=== PATIENT | male | born 1975 | race Caucasian/White ===

== ENCOUNTER 2016-12-18 02:22 | Inpatient (IN) | payer OTHER ==
[~2016-12-18] VITALS: Ht 170.2 cm; Wt 84.8 kg
[2016-12-18] MEDS ORDERED: NS 1,000 ML IV ONE (02:30)
[2016-12-18] MEDS ORDERED: NEXI20CA PO (02:35)
[2016-12-18] MEDS ORDERED: D5W IV ONE ×3 (02:45→09:00)
[2016-12-18] MEDS ORDERED: ONDANSETRON 4MG/2ML VIAL (J2405) IV ONE (02:45)
[2016-12-18] MEDS ORDERED: ACETYLCYSTEINE IV ONE ×3 (02:45→09:00)
[2016-12-18 02:47] LABS: BASO # 0.1 K/mm3 (0.0-0.2); BASO % 0.8 % (0.0-1.0); EOS # 0.2 K/mm3 (0.0-0.50); LARGE UNSTAINED CELL # 0.1 K/mm3 (0.0-0.4); LARGE UNSTAINED CELL % 1.3 % (0.0-4.0); LYMPH # 1.2 K/mm3 (1.5-4.5); LYMPH % 14.9 % (24.0-44.0); MEAN CORPUSCULAR HEMOGLOBIN 30.2 pg (27.0-33.0); MEAN CORPUSCULAR HGB CONC 32.6 g/dl (32.0-36.5); MEAN CORPUSCULAR VOLUME 92.6 fl (80.0-96.0); MONO # 0.2 K/mm3 (0.0-0.8); MONO % 2.1 % (0.0-5.0); NEUTROPHILS # 6.5 K/mm3 (1.8-7.7); NEUTROPHILS % 78.9 % (36.0-66.0); PLATELET COUNT, AUTOMATED 226 k/mm3 (150-450); RED CELL DISTRIBUTION WIDTH 13.3 % (11.5-14.5); WHITE BLOOD COUNT 8.3 K/mm3 (4.0-10.0)
[2016-12-18 03:06] LABS: ABG BASE EXCESS -3.7 (-2.0-2.0); ABG HCO3 19.5 MEQ/L (22.0-26.0); ABG PARTIAL PRESSURE CO2 31.3 mmHg (35.0-45.0); ABG STANDARD HCO3 21.4 MEQ/L (22.0-26.0); ABG TOTAL CO2 20.5 MEQ/L (22.0-29.0); ABG pH (ARTERIAL) 7.413 UNITS (7.350-7.450)
[2016-12-18 03:12] LABS: ALBUMIN 4.2 GM/DL (3.2-5.2); ALBUMIN/GLOBULIN RATIO 1.17 (1.00-1.93); ALKALINE PHOSPHATASE 118 U/L (45-117); ALT/SGPT 645 U/L (12-78); ANION GAP 13 MEQ/L (8-16); AST/SGOT 1496 U/L (15-37); BILIRUBIN,DIRECT 0.6 MG/DL (0.0-0.2); BILIRUBIN,TOTAL 1.2 MG/DL (0.2-1.0); BLOOD UREA NITROGEN 9 MG/DL (7-18); CALCIUM LEVEL 8.8 MG/DL (8.5-10.1); CARBON DIOXIDE LEVEL 21 MEQ/L (21-32); CHLORIDE LEVEL 105 MEQ/L (98-107); GLOMERULAR FILTRATION RATE > 60.0 (>60); GLUCOSE, FASTING 104 MG/DL (70-105); POTASSIUM SERUM 3.7 MEQ/L (3.5-5.1); SODIUM LEVEL 139 MEQ/L (136-145); TOTAL PROTEIN 7.8 GM/DL (6.4-8.2)
[2016-12-18 03:12] LABS: INR 1.48
[2016-12-18] MEDS ORDERED: ONDANSETRON 4MG/2ML VIAL (J2405) IV PRN (04:45)
[2016-12-18 04:53] LABS: METHADONE URINE NEGATIVE (NEGATIVE)
--- NOTE | 2016-12-18 05:12 | HPEPDOC ---
General Date of Admission Dec 18, 2016 at 04:50 Chief Complaint The patient is a 41-year-old male Presented to ED with complaints of nausea and vomiting. History of Present Illness Patient is a 41 year old male with a PMHx of HTN and GERD who presented to the ER with complaints of nausea and vomiting since yesterday. Patient noted that on Sunday he had two teeth extracted. Since that point he has been taking Tylenol because of pain. He took a few pills on then and began to increase his usage on Sunday. Reports he has taken 85 pills of Tylenol 500mg. By Sunday he began to have nausea and vomiting. He reports 15-20x of vomiting without blood or bile. He denies any attempt to harm himself. He does not have any psychiatric history of suicidal ideation. He notes this is the first time he has had an overdose. He does note that he has 2 episodes of diarrhea yesterday (non-bloody). He notes some lower abdominal pain. He denies chest pain, shortness of breath, palpitations, constipation or dysuria. Denies any fevers at home. 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 Review of Symptoms Other systems Constitutional: Denies weight loss, change in appetite, or recent trauma Eyes: No visual changes or eye pain Ears, Nose, Throat: Denies nose bleeds, or difficulty swallowing Cardiovascular: Denies chest pain, sweating, or orthopnea Respiratory: Denies cough, wheezing, or shortness of breath GI: Positive nausea, vomiting, abdominal pain, and diarrhea, No constipation : Denies pain with urination or frequency Musculoskeletal: Denies joint pain or swelling Neuro / Psych: Denies muscle weakness or sensory loss Skin: No skin rashes noted All other review of systems negative; otherwise stated in history of present illness Screening: - Colonoscopy and EGD done a few years ago reported to have diverticulosis Vital Signs - Vitals: BP 162/100, HR 88, RR 18, Sat 97%RA, Temp 100.7F - General: Lying in bed, No acute distress, Speaking in full sentences, AAOx3 - HEENT: NC, AT, PERRLA, EOMI - CVS: RRR, +S1S2, - Murmurs / rubs / gallops - Lungs: Fair air entry bilaterally, Clear to auscultation, No wheezing / rales / rhonchi - Abdomen: Soft, Non-distended, Tenderness at lower quadrants bilaterally, Epigastrium and RUQ, + Bowel sounds x 4 - Extremities: + PPx4, No lower extremity edema, No calf tenderness - Neuro: No focal motor or sensory deficit - Skin: No visible rashes Laboratory Data Labs 24H Laboratory Tests 2 12/18/16 02:31: Acetaminophen Level 5.0L, Aspartate Amino Transf (AST/SGOT) 1496H, Alanine Aminotransferase (ALT/SGPT) 645H, Alkaline Phosphatase 118H, Total Bilirubin 1.2H, Direct Bilirubin 0.6H, Albumin 4.2, Albumin/Globulin Ratio 1.17, Anion Gap 13, White Blood Count 8.3, Red Blood Count 6.03, Hemoglobin 18.2H, Hematocrit 55.8H, Mean Corpuscular Volume 92.6, Mean Corpuscular Hemoglobin 30.2 , Mean Corpuscular Hemoglobin Concent 32.6, Red Cell Distribution Width 13.3, Platelet Count 226, Neutrophils (%) (Auto) 78.9H, Lymphocytes (%) (Auto) 14.9L, Monocytes (%) (Auto) 2.1, Eosinophils (%) (Auto) 2.0, Basophils (%) (Auto) 0.8, Neutrophils # (Auto) 6.5, Lymphocytes # (Auto) 1.2L, Monocytes # (Auto) 0.2, Eosinophils # (Auto) 0.2, Basophils # (Auto) 0.1, Calcium Level 8.8, Ethyl Alcohol Level < 0.003, Glomerular Filtration Rate > 60.0, Large Unclassified Cells # 0.1, Large Unclassified Cells % 1.3, Phosphorus Level 2.8, Salicylates Level < 1.7L, Thyroid Stimulating Hormone (TSH) 1.750, Total Creatine Kinase 112 , Total Protein 7.8 12/18/16 02:36: Activated Partial Thromboplast Time 29.3, Lactic Acid (Sepsis) 2.0, Prothromb Time International Ratio 1.48, Prothrombin Time 18.0H 12/18/16 02:47: Bedside Glucose (Misc Panel) 109H 12/18/16 03:00: Arterial Blood pH 7.413, Arterial Blood Partial Pressure CO2 31.3L, Arterial Blood Partial Pressure O2 78.0, Arterial Blood Total CO2 20.5L, Arterial Blood HCO3 19.5L, Arterial Blood Base Excess -3.7L, Arterial Blood Oxygen Saturation 96.7, Blood Gas Bicarbonate Standard 21.4L 12/18/16 04:23: Urine Amphetamines Screen NEGATIVE, Urine Benzodiazepines Screen NEGATIVE, Urine Opiates Screen NEGATIVE, Urine Barbiturates Screen NEGATIVE, Urine Cannabinoids Screen NEGATIVE, Urine Cocaine Metabolite Screen NEGATIVE, Urine Methadone Screen NEGATIVE, Urine Phencyclidine Screen NEGATIVE CBC/BMP Laboratory Tests 12/18/16 02:31 Red Blood Count 6.03, Mean Corpuscular Volume 92.6, Mean Corpuscular Hemoglobin 30.2, Mean Corpuscular Hemoglobin Concent 32.6, Red Cell Distribution Width 13.3 , Neutrophils (%) (Auto) 78.9 H, Lymphocytes (%) (Auto) 14.9 L, Monocytes (%) ( Auto) 2.1, Eosinophils (%) (Auto) 2.0, Basophils (%) (Auto) 0.8, Neutrophils # ( Auto) 6.5, Lymphocytes # (Auto) 1.2 L, Monocytes # (Auto) 0.2, Eosinophils # ( Auto) 0.2, Basophils # (Auto) 0.1 Plan / VTE VTE Prophylaxis Ordered?: Yes Plan Plan Acetaminophen overdose possibly 2/2 suicidal ideation, possibly 2/2 pain - Reports he has taken 85 pills of Tylenol 500mg - Reports no suicidal ideation, no psychiatric history, no overdose or drug abuse history - Physical reveals abdominal tenderness diffusely - Labs reveal significant elevation in AST and ALT (2-3:1), Elevation in INR, Tylenol level of 5.0 - Does not meet [facility] criteria for liver transplant at this time - Called poison control; advised to give N-acetylcysteine 1 hour, 4 hour and 16 hour bag and to adaquatley hydrate patient - Advised to call poison control back with repeat lab work in 6-12 hours after hydration to determine if additional 16 hour bag is required - Will c/w N-acetylcysteine and IV fluid hydration - Will keep on suicidal precautions and bedside sitter - Will repeat labs at 830AM with ABG Elevated Hg likely 2/2 hemoconcentration 2/2 nausea and vomiting - Will give Zofran for symptomatic relief - c/w IV fluid hydration with NS HTN - will start amolodipine 5mg with holding parameters GERD - will start protonix DVT prophylaxis - Will start SCDs only ROBERTO BEDOLLA MD Dec 18, 2016 05:12
[2016-12-18] MEDS ORDERED: amLODIPine 5 MG TAB PO ONE (05:30)
[2016-12-18 05:55] VITALS: BP 180/94
[2016-12-18] MEDS: NS 1,000 ML IV SCH ×2 (07:30→14:44)
--- NOTE | 2016-12-18 07:35 | REP ---
Clinical: Drug overdose . Comparison: 03/05/2014 . Findings: The mediastinum and cardiac silhouette are stable and within normal limits for portable technique. The lung jackson are clear without acute consolidation, effusion, or pneumothorax. Skeletal structures are intact. Impression: Normal portable chest x-ray Signed by Marco Ocampo MD 12/18/2016 07:27 A
[2016-12-18 07:49] VITALS: BP 174/96
[2016-12-18 08:00] VITALS: BP 174/96
[2016-12-18 08:01] LABS: BASO % 0.5 % (0.0-1.0); EOS # 0.1 K/mm3 (0.0-0.50); EOS % 1.8 % (0.0-3.0); LARGE UNSTAINED CELL # 0.1 K/mm3 (0.0-0.4); LARGE UNSTAINED CELL % 1.8 % (0.0-4.0); LYMPH # 1.5 K/mm3 (1.5-4.5); LYMPH % 17.4 % (24.0-44.0); MEAN CORPUSCULAR HEMOGLOBIN 31.6 pg (27.0-33.0); MEAN CORPUSCULAR HGB CONC 34.1 g/dl (32.0-36.5); MEAN CORPUSCULAR VOLUME 92.5 fl (80.0-96.0); MONO # 0.4 K/mm3 (0.0-0.8); MONO % 4.8 % (0.0-5.0); NEUTROPHILS # 5.8 K/mm3 (1.8-7.7); NEUTROPHILS % 73.6 % (36.0-66.0); PLATELET COUNT, AUTOMATED 184 k/mm3 (150-450); RED CELL DISTRIBUTION WIDTH 13.3 % (11.5-14.5); WHITE BLOOD COUNT 7.9 K/mm3 (4.0-10.0)
[2016-12-18 08:16] LABS: ALBUMIN 3.1 GM/DL (3.2-5.2); ALBUMIN/GLOBULIN RATIO 0.97 (1.00-1.93); ALKALINE PHOSPHATASE 82 U/L (45-117); ALT/SGPT 576 U/L (12-78); ANION GAP 11 MEQ/L (8-16); AST/SGOT 1077 U/L (15-37); BILIRUBIN,TOTAL 0.8 MG/DL (0.2-1.0); BLOOD UREA NITROGEN 8 MG/DL (7-18); CALCIUM LEVEL 7.5 MG/DL (8.5-10.1); CARBON DIOXIDE LEVEL 23 MEQ/L (21-32); CHLORIDE LEVEL 107 MEQ/L (98-107); CREATININE FOR GFR 0.67 MG/DL (0.70-1.30); GLOMERULAR FILTRATION RATE > 60.0 (>60); GLUCOSE, FASTING 118 MG/DL (70-105); POTASSIUM SERUM 3.3 MEQ/L (3.5-5.1); SODIUM LEVEL 141 MEQ/L (136-145); TOTAL PROTEIN 6.3 GM/DL (6.4-8.2)
[2016-12-18 08:47] LABS: ABG BASE EXCESS -1.9 (-2.0-2.0); ABG HCO3 21.4 MEQ/L (22.0-26.0); ABG PARTIAL PRESSURE CO2 33.1 mmHg (35.0-45.0); ABG PARTIAL PRESSURE O2 86.5 mmHg (75.0-100.0); ABG STANDARD HCO3 22.9 MEQ/L (22.0-26.0); ABG TOTAL CO2 22.4 MEQ/L (22.0-29.0); ABG pH (ARTERIAL) 7.429 UNITS (7.350-7.450)
[2016-12-18] MEDS: PANTOPRAZOLE 40MG TAB (PROTONIX) PO SCH (09:12)
[2016-12-18 09:16] LABS: INR 1.53
--- NOTE | 2016-12-18 10:08 | IPN ---
DATE: 12/18/2016 Omar is seen in the emergency room in an interim bed. He is supposed to go to progressive care unit (PCU). He is being admitted with hepatotoxicity secondary to what I think is probably unintentional, though excessive intake of acetaminophen. He is on the hospitalist service. He had dental extraction and was having severe pain. He kept taking more and more Tylenol, supposedly took up to 85 of them, yet he adamantly denies that this was meant to harm himself, he just lost track of his Tylenol intake because of his pain. No history of suicidal ideation or psychiatric illness of any kind. He does not receive any primary care. Apparently has a history of hypertension, gastroesophageal reflux disease (GERD). PHYSICAL EXAMINATION: 174/96, pulse of 85, respiratory rate 20, 96% oxygen saturation. GENERAL APPEARANCE: Resting comfortably. Visiting with family members, no distress. HEENT: Pupils are equal, round and reactive to light. Tympanic membranes clear. Neck with no masses. LUNGS: Clear. HEART: Without murmur. ABDOMEN: Soft, nontender, no masses. No tremor. No asterixis. LABORATORY DATA: This morning his CBC was unremarkable. Chemistry profile showed a potassium down to 3.3. AST down to 1077, ALT down to 576. INR was 1.48 on admission and it is 1.53 on followup. PLAN: Per admission history and physical, N-Acetylcysteine at 1 hour, 4 hour and 16 hours with plans to call Poison Control with the laboratory work at 6 to 12 hours after hydration. I am cancelling the sitter. There is no evidence of suicidal ideation. He will be on telemetry in progressive care unit (PCU). Family is supportive and with him. Hypertension. He is on amlodipine, which was started on admission. ADDENDUM: I have called Poison Control Center at [facility] twice. I also communicated with Omar's intensive care unit (ICU) nurse, Leah. Everyone is in understanding that he needs liver profile and INR drawn 2 hours prior to completion of his current 16 hour bag of N-Acetylcysteine. Should be called to Dr. Mcbride who will be the hospitalist operations and intelligence assistant tonight. Poison Control wants to be called with the results and they will make a decision about further therapy or possible transfer. All parties are aware of this. Edited 12/18/2016 [facility] 1116 MTDD
[2016-12-18 12:00] VITALS: BP 167/91
[2016-12-18 16:00] VITALS: BP 132/76
--- NOTE | 2016-12-18 18:20 | ECGEPIP ---
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
[2016-12-18 20:00] VITALS: BP 149/78
[2016-12-18 23:11] LABS: INR 1.36
[2016-12-18 23:18] LABS: ALBUMIN 2.8 GM/DL (3.2-5.2); ALBUMIN/GLOBULIN RATIO 0.85 (1.00-1.93); BILIRUBIN,DIRECT 0.2 MG/DL (0.0-0.2); BILIRUBIN,TOTAL 0.5 MG/DL (0.2-1.0); TOTAL PROTEIN 6.1 GM/DL (6.4-8.2)
[2016-12-19] VITALS (7 sets, daily range): BP systolic 99–164; BP diastolic 52–99
[2016-12-19] MEDS: NS 1,000 ML IV SCH ×4 (03:02→22:43)
[2016-12-19 05:04] LABS: BASO % 0.7 % (0.0-1.0); EOS # 0.2 K/mm3 (0.0-0.50); EOS % 4.2 % (0.0-3.0); LARGE UNSTAINED CELL # 0.1 K/mm3 (0.0-0.4); LARGE UNSTAINED CELL % 1.8 % (0.0-4.0); LYMPH # 1.8 K/mm3 (1.5-4.5); LYMPH % 29.4 % (24.0-44.0); MEAN CORPUSCULAR HEMOGLOBIN 31.5 pg (27.0-33.0); MEAN CORPUSCULAR HGB CONC 34.2 g/dl (32.0-36.5); MEAN CORPUSCULAR VOLUME 92.3 fl (80.0-96.0); MONO # 0.3 K/mm3 (0.0-0.8); MONO % 5.8 % (0.0-5.0); NEUTROPHILS # 3.4 K/mm3 (1.8-7.7); NEUTROPHILS % 58.2 % (36.0-66.0); PLATELET COUNT, AUTOMATED 164 k/mm3 (150-450); RED CELL DISTRIBUTION WIDTH 13.5 % (11.5-14.5); WHITE BLOOD COUNT 5.9 K/mm3 (4.0-10.0)
[2016-12-19 05:10] LABS: INR 1.31
[2016-12-19 05:28] LABS: ALBUMIN/GLOBULIN RATIO 0.94 (1.00-1.93); ALKALINE PHOSPHATASE 80 U/L (45-117); ALT/SGPT 868 U/L (12-78); ANION GAP 6 MEQ/L (8-16); AST/SGOT 1294 U/L (15-37); BILIRUBIN,TOTAL 0.7 MG/DL (0.2-1.0); BLOOD UREA NITROGEN 4 MG/DL (7-18); CALCIUM LEVEL 7.9 MG/DL (8.5-10.1); CARBON DIOXIDE LEVEL 24 MEQ/L (21-32); CHLORIDE LEVEL 110 MEQ/L (98-107); CREATININE FOR GFR 0.63 MG/DL (0.70-1.30); GLOMERULAR FILTRATION RATE > 60.0 (>60); GLUCOSE, FASTING 96 MG/DL (70-105); POTASSIUM SERUM 3.6 MEQ/L (3.5-5.1); SODIUM LEVEL 140 MEQ/L (136-145); TOTAL PROTEIN 6.2 GM/DL (6.4-8.2)
[2016-12-19] MEDS: PANTOPRAZOLE 40MG TAB (PROTONIX) PO SCH (08:13)
[2016-12-19] MEDS: amLODIPine 5 MG TAB PO SCH (08:13)
[2016-12-19] MEDS ORDERED: ACETYLCYSTEINE 8,500 MG in D5W 1,000 ML IV ONE (10:00)
--- NOTE | 2016-12-19 11:59 | IPN ---
DATE: 12/19/2016 SUBJECTIVE: The patient tells me that he continues to feel weak and tired. He has pain on the right side of his mouth where he had his dental extractions. He otherwise denies any specific complaints. He tells me that his nausea and vomiting is improving. OBJECTIVE: VITAL SIGNS: Maximum temperature (t-max) 102.4, temperature current 102.4, pulse 87, respiratory rate 15, blood pressure 136/80, oxygen saturation 98% on room air. GENERAL: He is a disheveled middle aged man with numerous tattoos. He is resting comfortably and appears in no distress. HEENT: Cranial nerves II through XII are grossly intact. He has tenderness on the right side of his face, but no significant swelling, erythema or discharge. He has moist mucous membranes. No elevation in central venous pressure. CARDIOVASCULAR EXAM: S1, S2 regular. RESPIRATORY EXAM: Clear. ABDOMINAL EXAM: Benign. EXTREMITIES: Numerous tattoos. No clubbing, cyanosis or edema. LABORATORY STUDIES: WBC 5.9, hemoglobin 15, hematocrit 44, platelet count 164. Chemistry panel: Sodium 140, potassium 3.6 and repleted, chloride 110, bicarbonate 24, BUN 4, creatinine 0.6, AST is 1294, up from 1040, ALT 860, up from 681. INR is 1.31, down from 1.36 on the previous draw. Acetaminophen level is negative from this morning. Chest x-ray is unremarkable. ASSESSMENT AND PLAN: This is a 41-year-old man status post acetaminophen overdose. 1. Acetaminophen overdose. Poison Control help was greatly appreciated. It does not appear that it was a suicidal attempt. No history of psychiatric disorder or family history of psychiatric disorder. No overdose intention. The patient was taking it for pain related to a tooth extraction. He does not have a one to one sitter. We are continuing N-acetylcysteine until his AST and ALT are down trending less than 1000. His next set of laboratory studies will be at midnight, 2 hours prior to the completion of N-acetylcysteine if liver functions are not trending down appropriately, INR is not less than 1.5 and acetaminophen level is not undetectable, then therapy should be continued and Poison Control should be contacted once again. 2. Hypertension. The patient is currently receiving Norvasc. 3. Fever. The patient did have an elevated temperature. At this time, we will check blood cultures, UA, urine culture. Chest x-rays are negative. He does not appear to have an infection at his dental site. For the time being, he is not on any antibiotics. This may be related to his overdose. We will continue to follow closely. 4. Deep vein thrombosis (DVT) prophylaxis. Early ambulation.
[2016-12-19] MEDS: CLINDAMYCIN 150 MG CAP PO SCH ×2 (14:12→22:44)
--- NOTE | 2016-12-19 22:01 | ECGEPIP ---
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
[2016-12-20] VITALS (9 sets, daily range): BP systolic 143–159; BP diastolic 86–94
[2016-12-20 01:01] LABS: INR 1.15
[2016-12-20 01:04] LABS: ALKALINE PHOSPHATASE 77 U/L (45-117); ALT/SGPT 914 U/L (12-78); AST/SGOT 890 U/L (15-37); BILIRUBIN,DIRECT 0.3 MG/DL (0.0-0.2); BILIRUBIN,TOTAL 0.7 MG/DL (0.2-1.0)
[2016-12-20] MEDS: CLINDAMYCIN 150 MG CAP PO SCH ×3 (05:25→20:58)
[2016-12-20] MEDS: NS 1,000 ML IV SCH ×3 (05:25→17:59)
[2016-12-20 06:32] LABS: BASO % 0.3 % (0.0-1.0); EOS # 0.2 K/mm3 (0.0-0.50); EOS % 3.3 % (0.0-3.0); LARGE UNSTAINED CELL # 0.2 K/mm3 (0.0-0.4); LARGE UNSTAINED CELL % 2.8 % (0.0-4.0); LYMPH # 1.8 K/mm3 (1.5-4.5); LYMPH % 25.9 % (24.0-44.0); MEAN CORPUSCULAR HGB CONC 32.8 g/dl (32.0-36.5); MEAN CORPUSCULAR VOLUME 94.5 fl (80.0-96.0); MONO # 0.4 K/mm3 (0.0-0.8); MONO % 6.3 % (0.0-5.0); NEUTROPHILS # 3.9 K/mm3 (1.8-7.7); NEUTROPHILS % 61.3 % (36.0-66.0); PLATELET COUNT, AUTOMATED 152 k/mm3 (150-450); RED CELL DISTRIBUTION WIDTH 13.5 % (11.5-14.5); WHITE BLOOD COUNT 6.3 K/mm3 (4.0-10.0)
[2016-12-20 06:33] LABS: INR 1.16
[2016-12-20 06:46] LABS: ALBUMIN 3.1 GM/DL (3.2-5.2); ALBUMIN/GLOBULIN RATIO 0.86 (1.00-1.93); ALKALINE PHOSPHATASE 79 U/L (45-117); ALT/SGPT 951 U/L (12-78); ANION GAP 7 MEQ/L (8-16); AST/SGOT 831 U/L (15-37); BILIRUBIN,TOTAL 0.7 MG/DL (0.2-1.0); BLOOD UREA NITROGEN 5 MG/DL (7-18); CALCIUM LEVEL 8.5 MG/DL (8.5-10.1); CARBON DIOXIDE LEVEL 25 MEQ/L (21-32); CHLORIDE LEVEL 108 MEQ/L (98-107); CREATININE FOR GFR 0.62 MG/DL (0.70-1.30); GLOMERULAR FILTRATION RATE > 60.0 (>60); GLUCOSE, FASTING 82 MG/DL (70-105); MAGNESIUM LEVEL 2.1 MG/DL (1.8-2.4); POTASSIUM SERUM 3.9 MEQ/L (3.5-5.1); SODIUM LEVEL 140 MEQ/L (136-145); TOTAL PROTEIN 6.7 GM/DL (6.4-8.2)
[2016-12-20] MEDS: PANTOPRAZOLE 40MG TAB (PROTONIX) PO SCH (09:12)
[2016-12-20] MEDS: amLODIPine 5 MG TAB PO SCH (09:12)
--- NOTE | 2016-12-20 14:05 | IPN ---
DATE OF EXAMINATION: 12/20/2016 SUBJECTIVE: Today, the patient tells me that he is all around feeling better. He has no further nausea or vomiting. He tells me pain is improving. He tells me that his pain in his teeth is improving, as well. He denies chest pain, shortness of breath, fevers, chills. OBJECTIVE: VITAL SIGNS: Maximum temperature (Tmax) 100.4 at 7:30 a.m., fever appears to be trending down, temperature 98.9, pulse 73, respiratory rate 18, blood pressure 159/91, oxygen saturation 97% on room air. GENERAL: He is a middle-aged man lying in bed. He is sleepy peacefully when I enter the room. When easily aroused, he does not appear to be in any distress. HEENT: Mildly disheveled. Cranial nerves II-XII are grossly intact. He has moist mucous membranes. No elevation in central venous pressure (CVP). No obvious erythema or tenderness or discharge on either of his two dental extraction sites. CARDIOVASCULAR EXAMINATION: S1, S2, regular. RESPIRATORY EXAMINATION: Clear. ABDOMINAL EXAMINATION: Obese. Bowel sounds are present. The abdomen is soft. There is mild tenderness in the right upper quadrant. EXTREMITIES: He has numerous tattoos. No clubbing, cyanosis, or edema. LABORATORY STUDIES: WBC 6.3, hemoglobin 14.7, platelet count 152. Chemistry panel: Sodium 140, potassium 3.9, chloride 108, bicarbonate 25, BUN 5, creatinine 0.6. Liver function tests: AST 831, ALT 951 slightly up from 914. INR is 1.1. Blood cultures are negative after 24 hours. Urine culture is pending. Urinalysis (UA) is essentially unremarkable. No other new imaging. ASSESSMENT AND PLAN: This is a 41-year-old man status post an acetaminophen overdose. PROBLEMS: 1. Acetaminophen overdose. Poison Control's help was greatly appreciated. They have recommended rechecking a liver function test. His ALT was slightly trending up this morning. We will do this. However, at this time, he is off N-acetylcysteine, and likely this syndrome is resolving. His international normalized ratio (INR) is down to 1.1. His acetaminophen level was undetectable on his last check. Will discuss the case once more with Poison Control. I suspect he can likely be discharged within the next 24 hours. 2. Hypertension. The patient is currently on Norvasc. His blood pressure is controlled. 3. Fever, possibly related to his recent tooth extractions. I have started him on clindamycin. His blood cultures have been negative. UA is unremarkable. His chest x-ray is negative, and he does not appear to have any other source of infection. He denies any cough or diarrhea. He should likely complete a 10-day course of antibiotics and have close followup with his dentist. 4. Deep vein thrombosis (DVT) prophylaxis. Early ambulation.
[2016-12-20 14:11] LABS: ALBUMIN 3.2 GM/DL (3.2-5.2); ALBUMIN/GLOBULIN RATIO 1.19 (1.00-1.93); BILIRUBIN,DIRECT 0.3 MG/DL (0.0-0.2); BILIRUBIN,TOTAL 0.5 MG/DL (0.2-1.0); TOTAL PROTEIN 5.9 GM/DL (6.4-8.2)
[2016-12-21] MEDS: NS 1,000 ML IV SCH (00:23)
[2016-12-21 04:45] VITALS: BP 158/89
[2016-12-21 05:30] LABS: BASO % 0.5 % (0.0-1.0); EOS # 0.4 K/mm3 (0.0-0.50); EOS % 6.3 % (0.0-3.0); LARGE UNSTAINED CELL # 0.1 K/mm3 (0.0-0.4); LARGE UNSTAINED CELL % 1.8 % (0.0-4.0); LYMPH # 1.9 K/mm3 (1.5-4.5); LYMPH % 27.2 % (24.0-44.0); MEAN CORPUSCULAR HEMOGLOBIN 31.4 pg (27.0-33.0); MEAN CORPUSCULAR HGB CONC 34.2 g/dl (32.0-36.5); MEAN CORPUSCULAR VOLUME 91.9 fl (80.0-96.0); MONO # 0.3 K/mm3 (0.0-0.8); MONO % 4.5 % (0.0-5.0); NEUTROPHILS % 59.7 % (36.0-66.0); PLATELET COUNT, AUTOMATED 183 k/mm3 (150-450); RED CELL DISTRIBUTION WIDTH 13.6 % (11.5-14.5); WHITE BLOOD COUNT 6.7 K/mm3 (4.0-10.0)
[2016-12-21 05:39] LABS: INR 0.99
[2016-12-21] MEDS: CLINDAMYCIN 150 MG CAP PO SCH (05:47)
[2016-12-21 05:56] LABS: ALBUMIN 3.4 GM/DL (3.2-5.2); ALBUMIN/GLOBULIN RATIO 0.94 (1.00-1.93); ALKALINE PHOSPHATASE 83 U/L (45-117); ALT/SGPT 829 U/L (12-78); ANION GAP 7 MEQ/L (8-16); AST/SGOT 432 U/L (15-37); BILIRUBIN,TOTAL 0.6 MG/DL (0.2-1.0); BLOOD UREA NITROGEN 9 MG/DL (7-18); CALCIUM LEVEL 8.7 MG/DL (8.5-10.1); CARBON DIOXIDE LEVEL 25 MEQ/L (21-32); CHLORIDE LEVEL 107 MEQ/L (98-107); CREATININE FOR GFR 0.61 MG/DL (0.70-1.30); GLOMERULAR FILTRATION RATE > 60.0 (>60); GLUCOSE, FASTING 91 MG/DL (70-105); MAGNESIUM LEVEL 2.1 MG/DL (1.8-2.4); POTASSIUM SERUM 4.1 MEQ/L (3.5-5.1); SODIUM LEVEL 139 MEQ/L (136-145)
[2016-12-21] MEDS ORDERED: PANTOPRAZOLE 40MG TAB (PROTONIX) PO PRN (06:45)
[2016-12-21 07:30] VITALS: BP 158/94
[2016-12-21] MEDS ORDERED: CLEO150C PO (10:47)
--- NOTE | 2016-12-21 17:29 | DSES ---
DATE OF ADMISSION: 12/18/2016 DATE OF LEAVING AGAINST MEDICAL ADVICE: 12/21/2016 LEAVING AGAINST MEDICAL ADVICE DIAGNOSIS: Acute liver failure secondary to acetaminophen overdose. SECONDARY DIAGNOSIS: Fever. HOSPITAL COURSE: The patient is a 41-year-old man who presented on 12/18/2016. He recently had dental extractions of two teeth on the right side of his mouth and reportedly was having significant pain associated with it. He was taking acetaminophen tablets by the handful as he has done throughout his entire life and without reading any bottles with instructions. He was doing this to help alleviate the pain and it was doing so minimally up to the point that he would have nausea, vomiting, and abdominal pain. He presented in acute liver failure with acetaminophen toxicity. He had an initial AST of 1496, ALT 649, INR which peaked at 1.36 at the time of admission, and an acetaminophen level that was 5 at the time of his presentation. Poison Control was notified. He did receive an acetylcysteine antidote. Through the usual protocol it was actually continued as his liver function tests (LFTs) had continued to trend back up. Once the protocol had completed, the patient had persistent fevers. He was started on clindamycin with a suspicion for an infected tooth, however despite appropriate antibiotics he continued to spike fevers. The patient was informed that further testing would be needed and it was ideal that he should be 24 hours fever free prior to any disposition. He was ordered for an echocardiogram. New medications were discontinued to rule out any potential allergic reaction and for drug fever. However the patient, with understanding the risks of continued infection and possible endocarditis and even , elected to leave the hospital AGAINST MEDICAL ADVICE. Throughout his stay he was extremely concerned about his Family and Medical Leave Act (FMLA) paperwork. Prior to his decision to leave AGAINST MEDICAL ADVICE, FMLA paperwork was completed so that the patient could be off work until 12/25/2016, where he could return on light duty until seen by a new primary care provider (PCP) appointment on 12/28/2016. SUBJECTIVE: This morning the patient tells me that he feels great, he has no complaints, and he is not concerned about his fever. He understands the risks and benefits of continued care and declines further care. OBJECTIVE: VITAL SIGNS: Maximum temperature (Tmax) 101.1, current temperature (T-current) 99.7, pulse 84, respiratory rate 20, blood pressure 158/94, oxygen saturation 98 % on room air. GENERAL: He is a disheveled, middle aged man laying in bed. He does not appear to be in any acute distress. HEENT: Cranial nerves II-XII are grossly intact. No obvious swelling or erythema on the right side of his mouth associated with his dental extractions, there is tenderness to palpation. CARDIOVASCULAR: S1, S2. No murmur appreciated. RESPIRATORY EXAM: Clear. ABDOMINAL EXAM: Benign. There is no tenderness. EXTREMITIES: No clubbing, cyanosis, or edema. He has numerous tattoos. LABORATORY STUDIES: WBC 6.7, hemoglobin 15.8, hematocrit 46.2, platelet count 183. Chemistry panel: Sodium 139, potassium 4.1, chloride 107, bicarbonate 25, BUN 9 , creatinine 0.6, AST 432, ALT 829, INR 0.9. Microbiology: Blood cultures are negative after 24 hours. Urine culture is negative. ASSESSMENT AND PLAN: This is a 41-year-old man status post acetaminophen overdose. 1. Acetaminophen overdose with acute liver failure. Poison Control's help was greatly appreciated. At this time his overdose appears to have resolved. His INR is within the normal range. His acetaminophen level is undetectable. His liver function tests are trending down without any further acetylcysteine. He should likely have repeat labs and close followup with a new primary care appointment which was arranged for him on 12/28/2016. 2. Fever, possibly related to his recent tooth extractions. He had been started on clindamycin but despite 2 days of appropriate antibiotic therapy he is still spiking very high temperatures. The etiology is not immediately clear, it could potentially be a drug fever. He was recently started on Protonix while here in the hospital, this has been discontinued, and amlodipine, which has also been discontinued. As he did have a slight rise in eosinophil count, there was a concern that it may have been a drug fever as well. An echocardiogram was ordered to rule out endocarditis, however at this time the patient refuses to stay in hospital for further treatment and antibiotic care and understands the risks of infection and and has elected to leave the hospital AGAINST MEDICAL ADVICE knowing that his stay will likely not be covered by any insurance he may have. Antibiotics for clindamycin have been sent to his pharmacy in order to arrange the safest disposition the patient is willing to allow for. 3. Hypertension. The patient is to followup with his new primary care provider and see if he would benefit from antihypertensive medication. 4. Deep venous thrombosis (DVT) prophylaxis. Ambulation. DISPOSITION: The patient has decided to leave the hospital AGAINST MEDICAL ADVICE. He is to followup with his primary care provider (PCP) as scheduled and followup with dental as soon as possible. Family and Medical Leave Act (FMLA) paperwork was previously filled out for him to be off work until 12/25/2016, and then on light duty from then until 12/28/2016, when he can be seen by a new primary care provider (PCP), this paperwork was filled out prior to him leaving AGAINST MEDICAL ADVICE. At this time I have made it clear to him that I do not think he is safe for discharge home and in that regard certainly do not feel he is safe to return to work immediately. MEDICATIONS: At the time of discharge: - clindamycin 600 mg every 8 hours for 7 days - Nexium 20 mg daily as needed for gastroesophageal reflux disease Greater than 30 minutes spent organizing safest disposition as possible and outlining plan of care and potential risks and benefits and answering all questions to the satisfaction of the patient. OLAMIDE
== END 2016-12-21 11:55 | disposition left against medical advice (07) | DRG 812 ==
LOC: M ED 04:08 → M ED INP 04:50 → M ICU 09:57 → M PCU 12-20 03:10
PROVIDERS: ADMIT Internal Medicine; ATTEND Internal Medicine
DX: T39.1X1A Poisoning by 4-Aminophenol derivatives, accidental (unintentional), initial encounter (principal); K72.00 Acute and subacute hepatic failure without coma; I10 Essential (primary) hypertension; R50.2 Drug induced fever; K21.9 Gastro-esophageal reflux disease without esophagitis; T48.4X5A Adverse effect of expectorants, initial encounter; Z79.899 Other long term (current) drug therapy; Y92.009 Unspecified place in unspecified non-institutional (private) residence as the place of occurrence of the external cause

== ENCOUNTER → 2016-12-21 | Outpatient (REF) | payer OTHER ==
[~2016-12-21] MED LIST: CLEO150C PO; NEXI20CA PO
[2016-12-21 21:09] LABS: MEAN CORPUSCULAR HEMOGLOBIN 31.2 pg (27.0-33.0); MEAN CORPUSCULAR HGB CONC 33.5 g/dl (32.0-36.5); MEAN CORPUSCULAR VOLUME 93.1 fl (80.0-96.0); RED CELL DISTRIBUTION WIDTH 13.6 % (11.5-14.5); WHITE BLOOD COUNT 6.9 K/mm3 (4.0-10.0)
[2016-12-21 21:13] LABS: ALBUMIN 3.8 GM/DL (3.2-5.2); ALBUMIN/GLOBULIN RATIO 1.09 (1.00-1.93); ALKALINE PHOSPHATASE 93 U/L (45-117); ALT/SGPT 784 U/L (12-78); ANION GAP 8 MEQ/L (8-16); AST/SGOT 327 U/L (15-37); BILIRUBIN,TOTAL 0.5 MG/DL (0.2-1.0); BLOOD UREA NITROGEN 10 MG/DL (7-18); CALCIUM LEVEL 8.8 MG/DL (8.5-10.1); CARBON DIOXIDE LEVEL 26 MEQ/L (21-32); CHLORIDE LEVEL 106 MEQ/L (98-107); CREATININE FOR GFR 0.69 MG/DL (0.70-1.30); GLOMERULAR FILTRATION RATE > 60.0 (>60); GLUCOSE, FASTING 94 MG/DL (70-105); POTASSIUM SERUM 4.3 MEQ/L (3.5-5.1); SODIUM LEVEL 140 MEQ/L (136-145); TOTAL PROTEIN 7.3 GM/DL (6.4-8.2)
[2016-12-26 14:14] LABS: ACETAMINOPHEN Negative ug/mL (10-30); AMITRIPTYLINE None Detected (Not Estab.); BUTALBITAL None Detected ug/mL (1-10); DESIPRAMINE None Detected (Not Estab.); DIAZEPAM None Detected ug/mL (0.1-0.9); DOXEPIN None Detected (Not Estab.); ETHANOL Negative % (0.000-0.010); NORCHLORDIAZEPOXIDE None Detected ug/mL (0.1-0.6); NORDIAZEPAM None Detected ug/mL (0.1-1.4); NORDOXEPIN None Detected (Not Estab.); NORTRIPTYLINE None Detected ng/mL (50-150); PENTOBARBITAL None Detected ug/mL (1-5); PHENOBARBITAL None Detected ug/mL (15-40); PHENYTOIN None Detected ug/mL (10.0-20.0)
== END ==
LOC: M SFHCLERA 15:01
PROVIDERS: ATTEND Family Medicine
DX: K72.00 Acute and subacute hepatic failure without coma (principal); T39.1X1D Poisoning by 4-Aminophenol derivatives, accidental (unintentional), subsequent encounter

== ENCOUNTER → 2016-12-25 | Outpatient (REF) | payer OTHER ==
[2016-12-25 17:23] LABS: MEAN CORPUSCULAR HGB CONC 33.3 g/dl (32.0-36.5); MEAN CORPUSCULAR VOLUME 93.1 fl (80.0-96.0); RED CELL DISTRIBUTION WIDTH 13.4 % (11.5-14.5); WHITE BLOOD COUNT 8.5 K/mm3 (4.0-10.0)
[2016-12-25 17:59] LABS: ALBUMIN 3.6 GM/DL (3.2-5.2); ALKALINE PHOSPHATASE 97 U/L (45-117); ALT/SGPT 210 U/L (12-78); ANION GAP 7 MEQ/L (8-16); AST/SGOT 26 U/L (15-37); BILIRUBIN,TOTAL 0.5 MG/DL (0.2-1.0); BLOOD UREA NITROGEN 9 MG/DL (7-18); CALCIUM LEVEL 8.9 MG/DL (8.5-10.1); CARBON DIOXIDE LEVEL 25 MEQ/L (21-32); CHLORIDE LEVEL 107 MEQ/L (98-107); CREATININE FOR GFR 0.73 MG/DL (0.70-1.30); GLOMERULAR FILTRATION RATE > 60.0 (>60); GLUCOSE, FASTING 87 MG/DL (70-105); SODIUM LEVEL 139 MEQ/L (136-145); TOTAL PROTEIN 7.2 GM/DL (6.4-8.2)
[2016-12-25 18:00] LABS: POTASSIUM SERUM 4.3 MEQ/L (3.5-5.1)
== END ==
LOC: M SFHCLERA 11:59
PROVIDERS: ATTEND Family Medicine
DX: K72.00 Acute and subacute hepatic failure without coma (principal)

== ENCOUNTER → 2017-01-01 | Outpatient (REF) | payer OTHER ==
[2017-01-01 20:21] LABS: ALBUMIN 3.8 GM/DL (3.2-5.2); ALBUMIN/GLOBULIN RATIO 1.15 (1.00-1.93); ALKALINE PHOSPHATASE 105 U/L (45-117); ALT/SGPT 48 U/L (12-78); ANION GAP 8 MEQ/L (8-16); AST/SGOT 19 U/L (15-37); BILIRUBIN,TOTAL 0.7 MG/DL (0.2-1.0); BLOOD UREA NITROGEN 9 MG/DL (7-18); CALCIUM LEVEL 9.2 MG/DL (8.5-10.1); CARBON DIOXIDE LEVEL 27 MEQ/L (21-32); CHLORIDE LEVEL 106 MEQ/L (98-107); CREATININE FOR GFR 0.81 MG/DL (0.70-1.30); GLOMERULAR FILTRATION RATE > 60.0 (>60); GLUCOSE, FASTING 173 MG/DL (70-105); SODIUM LEVEL 141 MEQ/L (136-145); TOTAL PROTEIN 7.1 GM/DL (6.4-8.2)
== END ==
LOC: M SFHCLERA 11:35
PROVIDERS: ATTEND Family Medicine
DX: K72.00 Acute and subacute hepatic failure without coma (principal)

== ENCOUNTER 2017-06-27 09:09 | Emergency (ER) | payer OTHER ==
[~2017-06-27] VITALS: Ht 170.2 cm; Wt 88.6 kg
[2017-06-27] MEDS ORDERED: EXCETAB81 PO (09:23)
[2017-06-27] MEDS ORDERED: NS 500 ML IV ONE (09:45)
[2017-06-27 10:07] LABS: BASO # 0.1 10^3/uL (0.0-0.2); BASO % 0.6 % (0.0-1.0); EOS # 0.3 10^3/uL (0.0-0.50); EOS % 4.2 % (0.0-3.0); IMMATURE GRANULOCYTE % 0.4 % (0-0); LYMPH # 2.7 10^3/uL (1.5-4.5); LYMPH % 33.1 % (24.0-44.0); MEAN CORPUSCULAR HEMOGLOBIN 31.5 pg (27.0-33.0); MEAN CORPUSCULAR HGB CONC 34.3 g/dl (32.0-36.5); MEAN CORPUSCULAR VOLUME 91.7 fl (80.0-96.0); MONO # 0.6 10^3/uL (0.0-0.8); NEUTROPHILS # 4.5 10^3/uL (1.8-7.7); NEUTROPHILS % 54.7 % (36.0-66.0); PLATELET COUNT, AUTOMATED 242 10^3/uL (150-450); RED CELL DISTRIBUTION WIDTH 13.9 % (11.5-14.5); WHITE BLOOD COUNT 8.2 10^3/uL (4.0-10.0)
[2017-06-27 10:34] LABS: ALBUMIN 4.1 GM/DL (3.2-5.2); ALKALINE PHOSPHATASE 109 U/L (45-117); ALT/SGPT 24 U/L (12-78); AMYLASE 34 U/L (25-115); ANION GAP 12 MEQ/L (8-16); AST/SGOT 22 U/L (15-37); BILIRUBIN,DIRECT 0.2 MG/DL (0.0-0.2); BILIRUBIN,TOTAL 0.4 MG/DL (0.2-1.0); BLOOD UREA NITROGEN 8 MG/DL (7-18); CALCIUM LEVEL 8.4 MG/DL (8.5-10.1); CARBON DIOXIDE LEVEL 19 MEQ/L (21-32); CHLORIDE LEVEL 105 MEQ/L (98-107); GLOMERULAR FILTRATION RATE > 60.0 (>60); GLUCOSE, FASTING 104 MG/DL (70-105); SODIUM LEVEL 136 MEQ/L (136-145); TOTAL PROTEIN 8.2 GM/DL (6.4-8.2)
--- NOTE | 2017-06-27 11:03 | REP ---
RIGHT UPPER QUADRANT ULTRASOUND: Real-time sonographic evaluation of the right upper quadrant performed. The gallbladder demonstrates no evidence of intraluminal sludge or calculi, wall thickening or pericholecystic fluid. There is no intrahepatic or extrahepatic biliary dilatation, common bile duct measuring 5 mm in diameter. Echotexture of the liver is diffusely heterogeneous. There is a possible mass in the posterior right lobe of the liver measuring 6.5 x 5.3 x 6.4 cm. Pancreas could not be visualized due to overlying bowel gas. Right kidney demonstrates no hydronephrosis or nephrolithiasis with normal size at 11.9 cm in length. IMPRESSION: Heterogeneous echotexture of the liver. Possible mass right lobe liver posteriorly 6.5 cm in maximum diameter. Recommend CT with and without IV contrast to further evaluate. Signed by Roberto Sauceda MD 06/27/2017 05:03 P
[2017-06-27] MEDS ORDERED: ISOVUE-370 76% 100ML VIAL (Q9967) As Ordered ONE (11:16)
--- NOTE | 2017-06-27 12:10 | REP ---
CT ABDOMEN WITH AND WITHOUT CONTRAST: TECHNIQUE: Axial noncontrast images through the abdomen followed by contrast-enhanced images through the abdomen and pelvis using 100 mL Isovue 370 intravenous contrast material, with coronal and sagittal reformations. The visualized lung bases demonstrate two nodules measuring 5 and 6 mm in diameter. Liver demonstrates no mass. Spleen, adrenals, pancreas and kidneys appear unremarkable. There is no adenopathy or free fluid in the abdomen. Mild atherosclerotic calcifications are noted. IMPRESSION: No liver mass. Today's ultrasound finding was artifactual. There are two nodules in the left lung base measuring 5 and 6 mm in diameter. Recommend followup CT of the chest to evaluate for other possible nodules. Signed by Roberto Sauceda MD 06/27/2017 05:05 P
[2017-06-27 12:27] VITALS: BP 184/117
--- NOTE | 2017-06-28 20:35 | ECGEPIP ---
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
--- NOTE | 2017-06-29 07:17 | ED PDOC ---
Post-Departure Follow-Up certified letter sent to pt re formal read of ct abd/p. pt has nodules. needs fu. no pcp listed Binu Yang MD Jun 29, 2017 07:17
== END 2017-06-27 12:29 | disposition home or self-care (01) ==
LOC: M ED 09:09
DX: R10.11 Right upper quadrant pain (principal); R91.8 Other nonspecific abnormal finding of lung field; R93.2 Abnormal findings on diagnostic imaging of liver and biliary tract; F17.200 Nicotine dependence, unspecified, uncomplicated
CPT/HCPCS: 74170; 76705; 80048; 80076; 81001; 82150; 83690; 85025; 86705; 86709; 86803; 87086; 87340; 93005; 99284; G0480; Q9967

== ENCOUNTER 2019-04-02 23:38 | Emergency (ER) | payer OTHER ==
[~2019-04-02] VITALS: Ht 170.2 cm; Wt 104.5 kg
[~2019-04-02 23:38] MED LIST changes: +EXCETAB81 PO
[2019-04-03] MEDS ORDERED: TETRACAINE 0.5% OPHTH SOLN 4ML OS ONE
[2019-04-03] MEDS ORDERED: FLUORESCEIN OPHTH 1 MG STRIP OS ONE
[2019-04-03] MEDS ORDERED: CIPROFLOXACIN 500 MG TAB PO ONE (01:15)
[2019-04-03] MEDS ORDERED: CIPR0.3S OU (02:29)
[2019-04-03] MEDS ORDERED: CIPROFLOXACIN 0.3% OPHTH SOLN 2.5ML OU ONE (02:30)
[2019-04-03 02:36] VITALS: BP 150/86
== END 2019-04-03 02:36 | disposition home or self-care (01) ==
LOC: M ED 23:38
DX: T15.02XA Foreign body in cornea, left eye, initial encounter (principal); W39.XXXA Discharge of firework, initial encounter; Y92.89 Other specified places as the place of occurrence of the external cause; I10 Essential (primary) hypertension

== ENCOUNTER → 2020-03-26 | Outpatient (CLI) | payer OTHER ==
[~2020-03-26] MED LIST changes: +CIPR0.3S OU; +HYDR12.55 PO; +LISI-538 PO
== END ==
LOC: M LABSMTC 12:55
PROVIDERS: ATTEND Family Medicine
DX: Z11.59 Encounter for screening for other viral diseases (principal)
CPT/HCPCS: C9803; U0003

== ENCOUNTER 2020-03-28 12:36 | Emergency (ER) | payer OTHER ==
[~2020-03-28] VITALS: Ht 170.2 cm; Wt 102.0 kg
[~2020-03-28 12:36] MED LIST changes: -HYDR12.55 PO; -LISI-538 PO
[2020-03-28] MEDS ORDERED: NS 1,000 ML IV SCH (13:02)
[2020-03-28] MEDS ORDERED: LABETALOL 100MG/20ML VIAL IV STA ×3 (13:02→14:56)
[2020-03-28] MEDS ORDERED: PANTOPRAZOLE 40MG VIAL (C9113 PER 1) IV ONE (13:15)
[2020-03-28] MEDS ORDERED: KETOROLAC 30 MG/ML 1ML VIAL IV ONE (13:15)
[2020-03-28] MEDS ORDERED: FUROSEMIDE 20MG/2ML VIAL (J1940) IV ONE (13:15)
[2020-03-28] MEDS ORDERED: LABETALOL 100 MG TAB PO ONE (13:15)
[2020-03-28] MEDS ORDERED: ONDANSETRON 4MG/2ML VIAL IV ONE (13:15)
[2020-03-28 13:23] LABS: BASO # 0.1 10^3/uL (0.0-0.2); BASO % 0.7 % (0.0-1.0); EOS # 0.3 10^3/uL (0.0-0.5); EOS % 4.8 % (0.0-3.0); HEMATOCRIT 47.4 % (42.0-52.0); HEMOGLOBIN 15.8 g/dl (13.5-17.5); LYMPH % 28.5 % (24.0-44.0); MEAN CORPUSCULAR HEMOGLOBIN 31.6 pg (27.0-33.0); MEAN CORPUSCULAR HGB CONC 33.3 g/dl (32.0-36.5); MEAN CORPUSCULAR VOLUME 94.8 fl (80.0-96.0); MONO # 0.7 10^3/uL (0.0-0.8); MONO % 10.2 % (0.0-5.0); NEUTROPHILS # 3.9 10^3/uL (1.5-8.5); NEUTROPHILS % 55.4 % (36.0-66.0); PLATELET COUNT, AUTOMATED 222 10^3/uL (150-450); WHITE BLOOD COUNT 7.1 10^3/uL (4.0-10.0)
--- NOTE | 2020-03-28 13:34 | REP ---
Clinical: Acute left flank pain. Technique: Axial noncontrast images from the lung bases to the pubic symphysis with coronal and sagittal re-formations. Comparison: 06/27/2017. Findings: Hepatomegaly and hepatosteatosis noted without focal hepatic lesion identified. Spleen, pancreas, gallbladder, bilateral adrenal glands and kidneys are normal. No perinephric stranding, hydroureteronephrosis, intrarenal or obstructing ureteral calculi identified. Evaluation of the enteric system is without obstruction or acute inflammatory process. Normal terminal ileum and appendix identified in the right lower quadrant. Pelvis demonstrates normal bladder and age appropriate prostate/seminal vesicles. No pelvic fluid or ascites. No free air. No significant adenopathy. Abdominal aorta without aneurysm. Musculoskeletal structures are intact. Lung bases are normal / stable and two noncalcified nodules in the left lower lobe remain unchanged compared to 2017. Impression: 1. Hepatomegaly and hepatosteatosis. 2. No further acute abdominopelvic pathology appreciated. No inflammatory stranding. No significant adenopathy. No free air. No obstruction. Normal appearance to the bowel. Electronically Signed by Marco Ocampo MD 03/28/2020 01:25 P
[2020-03-28 13:36] LABS: INR 1.1; PROTHROMBIN TIME 13.9 SECONDS (11.8-14.0)
[2020-03-28 13:57] LABS: ALBUMIN 3.7 GM/DL (3.2-5.2); ALT/SGPT 34 U/L (12-78); BILIRUBIN,DIRECT 0.1 MG/DL (0.0-0.2); BILIRUBIN,TOTAL 0.4 MG/DL (0.2-1.0); BLOOD UREA NITROGEN 13 MG/DL (7-18); CALCIUM LEVEL 8.9 MG/DL (8.5-10.1); CARBON DIOXIDE LEVEL 23 MEQ/L (21-32); CHLORIDE LEVEL 108 MEQ/L (98-107); CREATININE FOR GFR 0.89 MG/DL (0.70-1.30); GLOMERULAR FILTRATION RATE > 60.0 (>60); GLUCOSE, FASTING 90 MG/DL (70-100); LIPASE 107 U/L (73-393); POTASSIUM SERUM 4.1 MEQ/L (3.5-5.1); SODIUM LEVEL 140 MEQ/L (136-145); TOTAL PROTEIN 7.9 GM/DL (6.4-8.2)
[2020-03-28] MEDS ORDERED: HYDR12.55 PO (15:39)
[2020-03-28] MEDS ORDERED: LISI-538 PO (15:39)
[2020-03-28 15:44] VITALS: BP 224/114
[2020-03-28 16:00] VITALS: BP 178/92
== END 2020-03-28 16:31 | disposition home or self-care (01) ==
LOC: M ED 12:36
DX: L25.9 Unspecified contact dermatitis, unspecified cause (principal); I10 Essential (primary) hypertension; R10.12 Left upper quadrant pain; R10.32 Left lower quadrant pain; K21.9 Gastro-esophageal reflux disease without esophagitis; Z79.899 Other long term (current) drug therapy; F17.210 Nicotine dependence, cigarettes, uncomplicated
CPT/HCPCS: 36415; 74176; 80048; 80076; 81001; 83690; 85025; 85610; 96374; 96375; 96376; 99284; C9113; J1885; J1940; J2405

== ENCOUNTER 2021-11-29 10:36 | Emergency (ER) | payer OTHER ==
[~2021-11-29] VITALS: Ht 170.2 cm; Wt 109.1 kg
[~2021-11-29 10:36] MED LIST changes: -CIPR0.3S OU; +CIPR0.3S6 OU; +HYDR12.55 PO; +LISI20TA33 PO
[2021-11-29] MEDS ORDERED: METF500T13 (10:53)
[2021-11-29] MEDS ORDERED: ATOR40TA75 (10:53)
[2021-11-29] MEDS ORDERED: SPIR-10 (10:53)
[2021-11-29] MEDS ORDERED: TIZA2TA (10:53)
[2021-11-29] MEDS ORDERED: CHLO125TA (10:53)
[2021-11-29 11:37] LABS: BASO # 0.1 10^3/uL (0.0-0.2); BASO % 0.7 % (0.0-1.0); EOS # 0.7 10^3/uL (0.0-0.5); EOS % 6.8 % (0.0-3.0); HEMATOCRIT 41.9 % (42.0-52.0); HEMOGLOBIN 14.2 g/dl (13.5-17.5); LYMPH # 2.1 10^3/uL (1.5-5.0); LYMPH % 19.8 % (24.0-44.0); MEAN CORPUSCULAR HEMOGLOBIN 32.3 pg (27.0-33.0); MEAN CORPUSCULAR HGB CONC 33.9 g/dl (32.0-36.5); MEAN CORPUSCULAR VOLUME 95.4 fl (80.0-96.0); MONO % 9.4 % (2.0-8.0); NEUTROPHILS # 6.6 10^3/uL (1.5-8.5); NEUTROPHILS % 62.8 % (36.0-66.0); PLATELET COUNT, AUTOMATED 275 10^3/uL (150-450); RED BLOOD COUNT 4.39 10^6/uL (4.30-6.10); WHITE BLOOD COUNT 10.5 10^3/uL (4.0-10.0)
[2021-11-29] MEDS ORDERED: NS 1,000 ML IV ONE (12:50)
[2021-11-29 12:51] LABS: ALBUMIN 3.5 GM/DL (3.2-5.2); BILIRUBIN,DIRECT 0.1 MG/DL (0.0-0.2); BILIRUBIN,TOTAL 0.3 MG/DL (0.2-1.0); TOTAL PROTEIN 7.6 GM/DL (6.4-8.2)
[2021-11-29] MEDS ORDERED: ISOVUE-370 76% 100ML VIAL As Ordered ONE (12:57)
[2021-11-29 14:50] VITALS: BP 144/74
== END 2021-11-29 14:51 | disposition home or self-care (01) ==
LOC: M ED 10:36
DX: N17.9 Acute kidney failure, unspecified (principal); E11.9 Type 2 diabetes mellitus without complications; I10 Essential (primary) hypertension; I25.10 Atherosclerotic heart disease of native coronary artery without angina pectoris; K21.9 Gastro-esophageal reflux disease without esophagitis; F17.210 Nicotine dependence, cigarettes, uncomplicated; Z79.899 Other long term (current) drug therapy; Z79.84 Long term (current) use of oral hypoglycemic drugs
CPT/HCPCS: 74177; 80047; 80076; 81001; 83690; 83880; 85025; 96360; 99284; Q9967

== ENCOUNTER → 2021-12-09 | Outpatient (CLI) | payer OTHER ==
[~2021-12-09] MED LIST changes: +ATOR40TA75; +CHLO125TA; +METF500T13; +SPIR-10; +TIZA2TA
[2021-12-09 12:53] LABS: BASO # 0.1 10^3/uL (0.0-0.2); BASO % 0.8 % (0.0-1.0); EOS # 0.8 10^3/uL (0.0-0.5); EOS % 8.8 % (0.0-3.0); HEMATOCRIT 41.6 % (42.0-52.0); HEMOGLOBIN 13.9 g/dl (13.5-17.5); LYMPH # 2.8 10^3/uL (1.5-5.0); LYMPH % 32.5 % (24.0-44.0); MEAN CORPUSCULAR HEMOGLOBIN 31.7 pg (27.0-33.0); MEAN CORPUSCULAR HGB CONC 33.4 g/dl (32.0-36.5); MONO # 0.9 10^3/uL (0.0-0.8); MONO % 10.9 % (2.0-8.0); NEUTROPHILS # 4.1 10^3/uL (1.5-8.5); NEUTROPHILS % 46.8 % (36.0-66.0); PLATELET COUNT, AUTOMATED 269 10^3/uL (150-450); RED BLOOD COUNT 4.38 10^6/uL (4.30-6.10); WHITE BLOOD COUNT 8.7 10^3/uL (4.0-10.0)
[2021-12-09 13:26] LABS: ALBUMIN 4.1 GM/DL (3.2-5.2); ALT/SGPT 35 U/L (12-78); BILIRUBIN,TOTAL 0.4 MG/DL (0.2-1.0); BLOOD UREA NITROGEN 27 MG/DL (7-18); CALCIUM LEVEL 9.3 MG/DL (8.5-10.1); CARBON DIOXIDE LEVEL 24 MEQ/L (21-32); CHLORIDE LEVEL 107 MEQ/L (98-107); CREATININE FOR GFR 1.18 MG/DL (0.70-1.30); GLOMERULAR FILTRATION RATE > 60.0 (>60); GLUCOSE, FASTING 157 MG/DL (70-100); POTASSIUM SERUM 4.6 MEQ/L (3.5-5.1); SODIUM LEVEL 136 MEQ/L (136-145); TOTAL PROTEIN 8.4 GM/DL (6.4-8.2)
== END ==
LOC: M WUC 10:27
PROVIDERS: ATTEND Family Medicine
DX: R10.31 Right lower quadrant pain (principal)

== ENCOUNTER → 2023-01-15 | Outpatient (CLI) | payer OTHER ==
[~2023-01-15] MED LIST changes: +CIPR0.3S37 OU; -CIPR0.3S6 OU
[2023-01-15 12:58] LABS: BASO # 0.1 10^3/uL (0.0-0.2); EOS # 0.4 10^3/uL (0.0-0.5); EOS % 5.6 % (0.0-3.0); HEMATOCRIT 40.6 % (42.0-52.0); HEMOGLOBIN 12.7 g/dl (13.5-17.5); LYMPH # 2.1 10^3/uL (1.5-5.0); LYMPH % 26.6 % (24.0-44.0); MEAN CORPUSCULAR HEMOGLOBIN 30.8 pg (27.0-33.0); MEAN CORPUSCULAR HGB CONC 31.3 g/dl (32.0-36.5); MEAN CORPUSCULAR VOLUME 98.5 fl (80.0-96.0); MONO # 0.9 10^3/uL (0.0-0.8); MONO % 10.7 % (2.0-8.0); NEUTROPHILS # 4.4 10^3/uL (1.5-8.5); NEUTROPHILS % 55.3 % (36.0-66.0); PLATELET COUNT, AUTOMATED 247 10^3/uL (150-450); RED BLOOD COUNT 4.12 10^6/uL (4.30-6.10); WHITE BLOOD COUNT 7.9 10^3/uL (4.0-10.0)
[2023-01-15 13:22] LABS: ALBUMIN 3.9 G/DL (3.2-5.2); ALKALINE PHOSPHATASE 122 U/L (46-116); ALT/SGPT 18 U/L (7.0-40); AST/SGOT 19 U/L (<34); BILIRUBIN,TOTAL 0.2 MG/DL (0.3-1.2); BLOOD UREA NITROGEN 26 MG/DL (9-23); CALCIUM LEVEL 8.6 MG/DL (8.5-10.1); CARBON DIOXIDE LEVEL 24 MMOL/L (20-31); CHLORIDE LEVEL 105 MMOL/L (98-107); CREATININE FOR GFR 1.13 MG/DL (0.70-1.30); GLOMERULAR FILTRATION RATE > 60.0 (>60); GLUCOSE, FASTING 150 MG/DL (60-100); POTASSIUM SERUM 4.5 MMOL/L (3.5-5.1); SODIUM LEVEL 137 MMOL/L (136-145); THYROID STIMULATING HORMONE 2.131 uIU/ML (0.55-4.78); TOTAL PROTEIN 7.5 G/DL (5.7-8.2)
== END ==
LOC: M WUC 10:14
PROVIDERS: ATTEND Family Medicine
DX: R07.9 Chest pain, unspecified (principal)

== ENCOUNTER → 2023-02-06 | Outpatient (CLI) | payer OTHER ==
[2023-02-06 12:54] LABS: BASO # 0.1 10^3/uL (0.0-0.2); BASO % 0.8 % (0.0-1.0); EOS # 0.7 10^3/uL (0.0-0.5); EOS % 6.3 % (0.0-3.0); HEMATOCRIT 38.8 % (42.0-52.0); HEMOGLOBIN 12.7 g/dl (13.5-17.5); LYMPH # 2.1 10^3/uL (1.5-5.0); LYMPH % 18.4 % (24.0-44.0); MEAN CORPUSCULAR HEMOGLOBIN 31.2 pg (27.0-33.0); MEAN CORPUSCULAR HGB CONC 32.7 g/dl (32.0-36.5); MEAN CORPUSCULAR VOLUME 95.3 fl (80.0-96.0); MONO # 0.9 10^3/uL (0.0-0.8); MONO % 8.3 % (2.0-8.0); NEUTROPHILS # 7.4 10^3/uL (1.5-8.5); NEUTROPHILS % 65.5 % (36.0-66.0); PLATELET COUNT, AUTOMATED 270 10^3/uL (150-450); RED BLOOD COUNT 4.07 10^6/uL (4.30-6.10); WHITE BLOOD COUNT 11.3 10^3/uL (4.0-10.0)
[2023-02-06 12:55] LABS: PERCENT SATURATION 18.3 % (19.7-50.0)
[2023-02-06 12:56] LABS: FERRITIN 71.9 NG/ML (10.5-307.3)
[2023-02-06 13:02] LABS: FOLATE 15.31 NG/ML (>5.4)
== END ==
LOC: M WUC 10:05
PROVIDERS: ATTEND Family Medicine
DX: D64.9 Anemia, unspecified (principal)

== ENCOUNTER → 2023-02-06 | Outpatient (CLI) | payer OTHER | LOC: M RAD 09:17 | PROVIDERS: ATTEND Family Medicine | DX: R07.9 Chest pain, unspecified (principal) ==

== ENCOUNTER → 2024-03-31 | Outpatient (REF) | payer OTHER, BC | LOC: M SFHCLERA 11:11 | PROVIDERS: ATTEND Family Medicine | DX: R05.9 Cough, unspecified (principal) ==